=== PATIENT | female | born 1980 | race Two or more races ===

== ENCOUNTER 2024-08-28 21:27 | Emergency (ER) | payer MEDICAID, SELFPAY ==
[2024-08-28 21:28] VITALS: BMI 32.9
[2024-08-28 22:40] VITALS: BP 131/81; PULSE 74; RESP 18; TEMP 36.8; O2SAT 97
--- NOTE | 2024-08-29 00:37 | EDNOTE_ITS ---
ED General RME/HPI General Chief complaint: General Adult/Misc Complain Stated complaint: NEW MEDICATION/ MISC COMPLAINTS Time Seen by Provider: 08/29/24 00:20 Arrival date/time: 08/28/24 21:27 Limitations: no limitations RME / HPI RME / HPI narrative: 44-year-old female presents for evaluation of dysuria x 1 day. She reports that she was recently started on Jardiance for diabetes control and states that she i s concerned it is not the appropriate dose. She reports intermittent burning with urination over the last several days. She reports that she continues to take her glucose levels at home and has been in the 180s over the last several days. Patient denies hematuria, abdominal pain, nausea, vomiting, cramping, headache, fever. She notes increased vaginal discharge. Denies new sexual partners. Quality: burning Consistency: intermittent Relieving factors: none Related Data Previous Rx's ?Medication ?Instructions ?Recorded ciprofloxacin HCl 500 mg tablet 500 mg PO BID 7 days # 14 tabs 08/29/24 Allergies Allergy/AdvReac Type Severity Reaction Status Date / Time diphenhydramine Allergy Unknown Verified 04/17/17 16:09 morphine AdvReac Mild VOMITING Verified 04/17/17 16:09 Review of Systems Constitutional Constitutional: Denies chills, Denies fever(s), Denies headache(s) and Denies weakness ENT Ears, Nose, Mouth, and Throat: Denies headache(s) and Denies vertigo Cardiovascular Cardiovascular: Denies chest pain, Denies dyspnea and Denies irregular heart rhythm Respiratory Respiratory: Denies cough and Denies dyspnea Gastrointestinal Gastrointestinal: Denies change in stool character, Denies loose stools, Denies nausea and Denies vomiting Genitourinary Genitourinary: Reports dysuria, Denies hematuria, Reports vaginal discharge and Reports vaginal pruritus Musculoskeletal Musculoskeletal: Denies back pain Integumentary/Breasts Skin/Breast: Denies rash Neurologic Neurologic: Denies headache(s), Denies vertigo and Denies weakness Past Medical History Past Medical History CARDIAC: Negative Congestive Heart Failure RESPIRATORY: Negative Chronic Obstructive Pulmonary Disease (COPD) GENITOURINARY: Negative Renal Disease ENDOCRINE: Positive Diabetes Mellitus Type 2; Negative Diabetes Mellitus Type 1 Social History SMOKING STATUS: Never smoker ED Exam General Limitations: Present no limitations General appearance: Present alert and in no apparent distress Head Head exam: Present atraumatic and normocephalic Eye Eye exam: Present normal appearance and EOMI; Absent scleral icterus ENT ENT exam: Present normal exam and normal oropharynx Chest Chest inspection: Present normal inspection and symmetric chest wall rise Respiratory Respiratory exam: Present normal lung sounds bilaterally; Absent respiratory distress Cardiovascular Cardiovascular exam: Present regular rate and +S1 Abdominal Exam Abdominal exam: Present soft and normal bowel sounds; Absent distention or tenderness Extremities Exam Extremities exam: Present normal inspection Back Exam Back exam: Present normal inspection; Absent tenderness, CVA tenderness (R) or CVA tenderness (L) Neurological Exam Neurological exam: Present alert and normal gait Psychiatric Psychiatric exam: Present normal affect Skin Skin exam: Present warm, dry, intact and normal color Course Quality Measures none Orders Category Date Time Status UA, C/S IF [Urinalysis, C/S if Indicated] Stat Lab 08/29/24 00:44 Completed Urine Culture Stat Lab 08/29/24 00:44 Completed Ketorolac Inj [Toradol Inj] Med 08/29/24 02:08 Discontinued 30 mg IM X1 ONE cefTRIAXone [Rocephin] 500 mg Med 08/29/24 02:09 Discontinued Lidocaine 1% 20 ml [Xylocaine 1% 20 ML] 1 ml IM X1 Reevaluation(s) Reevaluation #1: Shared decision making with patient to forego imaging and labs at this time. Patient agreeable with plan for follow-up with primary care today. Patient will be given 1 dose of antibiotic for likely cystitis and pain medication. Time: 02:09 Vital Signs Vital signs: Vital Signs Temperature 98.3 F 08/28/24 22:40 Pulse Rate 74 08/28/24 22:40 Respiratory Rate 18 08/28/24 22:40 Blood Pressure 131/81 H 08/28/24 22:40 Pulse Oximetry (%) 97 08/28/24 22:40 Oxygen Delivery Method Room Air 08/28/24 22:40 Pulse ox 97% on room air, within normal limits. [facility] Patient data External records reviewed:: [facility] previous records Clinical information provided by:: patient Social determinants that could affect healthcare access:: none Patient has the following chronic illnesses:: Diabetes. How is presenting disease/condition affected by chronic disease/condition?: exacerbated by Evaluation data The following diagnostics were reviewed and interpreted by me:: lab results Lab and/or radiology exams considered but not ordered:: Considered not ordered. Interpretation Summary: Urine positive for ketones, glucose and blood. Positive for UTI Medications Medications considered but not ordered:: Rx given. Medication administrations:: Medication Administration History Discontinued Medications Ceftriaxone Sodium 500 mg/ (Lidocaine HCl 1 ml) 0 mg IM X1 ONE Stop: 08/29/24 02:10 Last Admin: 08/29/24 02:21 Dose: 500 mg Documented By: REBECA Ketorolac Tromethamine (Ketorolac Inj 60 Mg/2 Ml Vial) 30 mg IM X1 ONE Stop: 08/29/24 02:09 Last Admin: 08/29/24 02:28 Dose: 30 mg Documented By: SUPRIYAOR Rx given. Consultations Consultation(s) initiated? (list below): No Diagnosis Differential Diagnosis ED Complaint MDM: DKA, cystitis, urinary tract infection, pyelonephritis, poorly controlled b Most likely diagnosis given after review of the tests above:: Glycosuria, urine ketones, hematuria, poorly controlled diabetes. Admission Indicated Admission indicated?: not indicated Explain why admission is indicated or not indicated:: Patient stable with plan to follow-up with primary care doctor for further diabetes maintenance. Low concern for DKA. Patient stable at time of discharge. Admission Request Was there a request for admission?: No Disposition Plan Disposition Plan: Discharge Discharge Attestation Discharge Attestation: The patient and all family members were given an opportunity to ask questions and understood the discharge instructions. Discharge instructions specifically effects, indications for sooner follow up or return to the emergency department, and the expected course of current diagnosis. Patient condition: Stable Medical Decision Making MDM Narrative MDM Narrative: 44-year-old female with diabetes presents with dysuria and vaginal discharge. Vital signs stable. Unremarkable physical exam and using shared decision making with patient deferred labs and imaging at this time. Patient reports that her home blood sugars have been in the 180s over the last several days and given lack of abdominal pain, nausea, vomiting, weakness less concern for DKA at this time. UA significant for glycosuria, ketones, hematuria, and UTI. Patient was given Rocephin in the department and analgesics which she reported improved her symptoms. Ultimately patient was discharged home with plan to follow-up with primary care for further diabetes medication management. Patient was discharged on ciprofloxacin for UTI complicated by poorly controlled diabetes. I urged the patient to take ciprofloxacin with food and consider a probiotic while on medication to reduce her risk for C. difficile. Patient vocalized understanding of the plan and was given return precautions. Differential Diagnosis Differential Diagnosis: DKA, cystitis, urinary tract infection, pyelonephritis, poorly controlled b Lab Data Labs: Lab Results 08/29/24 Range/Units 00:44 Ur Collection Type Clean Catch Urine Color Yellow (Lt Yel-Yel) Urine Clarity Clear (Clear/Hazy) Urine pH 5.5 (5.0-7.0) Ur Specific [place] 1.037 H (1.001-1.035) Urine Protein Negative (Neg - Trace) Urine Glucose (UA) 4+ A (Negative) Urine Ketones 1+ A (Negative) Urine Blood 1+ A (Negative) Urine Nitrite Negative (Negative) Urine Bilirubin Negative (Negative) Urine Urobilinogen (Auto) Negative (0.0-1.0) mg/dL Ur Leukocyte Esterase Positive (Negative) Urine RBC 20 H (0-3) /hpf Urine WBC 32 H (0-5) /hpf Ur Squamous Epith Cells 2 (0-5) /hpf Urine Bacteria None (None) Ur Culture Indicated? Yes Discharge Plan Plan Patient Disposition: HOME (Self Care) Disposition Comment: stable Prescriptions/Referrals Prescriptions/Med Rec: New ciprofloxacin HCl 500 mg tablet 500 mg PO BID 7 Days Qty: 14 0RF Referrals: Avis Johnson MD [Primary Care Provider] - In 1 week Problem List Clinical Impression: Dysuria, Hematuria, Urine ketones, Glycosuria, Uncontrolled diabetes mellitus Patient/Caregiver Discharge Instructions Other Activity Instructions:: Take Cipro floxacillin twice a day for the next time 7 days for urinary tract infection. Follow-up with primary care within the next 24 hours for further diabetes management and plan. Return to the ED if your symptoms worsen or change. Education Materials: Glucose (Urine), Dysuria Print Language: Cuban Stand Alone Forms: Coleen Award Info., Patient Portal Info Letter PA/LAUREN Supervising Physician PA/LAUREN Supervising Physician: Dr. Griffin
[2024-08-29 00:48] LABS: Collection Type, Urine Clean Catch
[2024-08-29 00:56] LABS: Bilirubin,Urine Negative (Negative); Blood,Urine 1+ (Negative); Clarity,Urine Clear (Clear/Hazy); Color,Urine Yellow (Lt Yel-Yel); Glucose, Urine 4+ (Negative); Ketones,Urine 1+ (Negative); Leukocyte Esterase,Urine Positive (Negative); Nitrite,Urine Negative (Negative); PH,Urine 5.5 (5.0-7.0); Protein,Urine Negative (Neg - Trace); RBC,Urine 20 /hpf (0-3); Specific Gravity,Urine 1.037 (1.001-1.035); Squamous Epithelial Cell,Urine 2 /hpf (0-5); Urobilinogen,Urine Negative mg/dL (0.0-1.0); WBC,Urine 32 /hpf (0-5)
[2024-08-29 00:58] LABS: Culture Indicated,Urine Yes
[2024-08-29] MEDS: cefTRIAXone 500 MG, LIDOCAINE 1% 20 ML 1 ML IM (02:21)
[2024-08-29] MEDS: KETOROLAC INJ 60 MG/2 ML VIAL 30 MG IM (02:28)
== END 2024-08-29 02:36 | disposition home or self-care (01) ==
PROVIDERS: Physician Assistant; Emergency Provider Emergency Medicine; PCP Internal Medicine
DX: E11.65 Type 2 diabetes mellitus with hyperglycemia (principal); R30.0 Dysuria; R82.4 Acetonuria; R81 Glycosuria
CPT/HCPCS: 81001; 87086; 96372; 99283; J0696; J1885; J3490

== ENCOUNTER 2025-04-23 19:26 | Emergency (ER) | payer MEDICAID, SELFPAY ==
[2025-04-23 19:28] VITALS: BMI 34.0
[2025-04-23 19:58] VITALS: BP 119/79; PULSE 86; RESP 18; TEMP 36.8; O2SAT 97
--- NOTE | 2025-04-23 19:59 | XR_ITS ---
Examination: CT abdomen and pelvis without contrast. Coronal 3-D reconstructions. Sagittal 2-D reconstructions. Date and time of exam: April 23, 2025, 2137 hours INDICATIONS: Kidney infection beginning 3 weeks ago CTDI: vol (mGy): 12.2 DLP: (mGycm): 687 Technique: Axial images of the abdomen have been obtained, 3 mm slice thickness Intravenous contrast material has not been administered. Low dose protocols were performed. One or more of the following dose reduction techniques were used; automated exposure control, adjustment of the mA and/or KV according to patient size, use of iterative reconstruction technique. Findings: Small retrocardiac gastric hernia no focal liver or splenic lesion Absent gallbladder. No pancreatic mass Moderate renal parenchymal scar formation, no renal or ureteral calculi, no hydronephrosis Mild edema in the mesentery Normal appendix No bowel obstruction No pelvic mass No bladder mass or bladder calculi Mild disc narrowing L5-S1 IMPRESSION: Moderate renal parenchymal scar formation, no hydronephrosis renal or ureteral calculi Normal appendix No bowel obstruction Negative for cystitis
[2025-04-23 20:28] LABS: Collection Type, Urine Clean Catch
[2025-04-23 20:35] LABS: Basophils # (Auto) 0.0 Thou/mm3 (0.0-0.2); Basophils % (Auto) 1 % (0-2.5); Eosinophils # (Auto) 0.2 Thou/mm3 (0.0-0.5); Eosinophils % (Auto) 2 % (0-10); Hematocrit 39.6 % (36.0-46.0); Hemoglobin 13.1 g/dL (12.0-16.0); Immature Granulocytes Auto 0.02 Thou/mm3 (0.00-0.00); Lymphocytes # (Auto) 2.4 Thou/mm3 (1.0-4.8); Lymphocytes % (Auto) 29 % (10-50); Mean Corpuscular HGB Conc 33.1 g/dl (31.0-37.0); Mean Corpuscular Hemoglobin 25.7 pg (25.0-35.0); Mean Corpuscular Volume 78 fL (80-100); Monocytes # (Auto) 0.6 Thou/mm3 (0.0-0.8); Monocytes % (Auto) 7 % (0-12); Neutrophils # (Auto) 5.1 Thou/mm3 (1.8-7.7); Neutrophils % (Auto) 61 % (37-80); Nucleated Red Blood Cell # 0.00 Thou/mm3 (0.00-0.00); Nucleated Red Blood Cell % 0 /100 WBC (0); Platelet Count 264 Thou/mm3 (140-440); RDW Standard Deviation 38.3 fL (36.4-46.3); Red Blood Count 5.10 Miln/mm3 (4.00-5.20); White Blood Count 8.3 Thou/mm3 (3.6-11.0)
[2025-04-23 20:37] LABS: HCG Qualitative,Urine Negative
[2025-04-23 20:39] LABS: Bilirubin,Urine Negative (Negative); Blood,Urine Negative (Negative); Clarity,Urine Turbid (Clear/Hazy); Color,Urine Drk-Yellow (Lt Yel-Yel); Glucose, Urine 4+ (Negative); Ketones,Urine Negative (Negative); Leukocyte Esterase,Urine Positive (Negative); Nitrite,Urine Positive (Negative); PH,Urine 6.0 (5.0-7.0); Protein,Urine Negative (Neg - Trace); RBC,Urine 27 /hpf (0-3); Specific Gravity,Urine 1.037 (1.001-1.035); Squamous Epithelial Cell,Urine 13 /hpf (0-5); Urobilinogen,Urine Negative mg/dL (0.0-1.0); WBC,Urine 35 /hpf (0-5)
[2025-04-23 20:51] LABS: Alanine Aminotransferase 31 U/L (10-49); Albumin, Serum 4.2 gm/dL (3.5-5.0); Albumin/Globulin Ratio 1.4 (1.2-2.2); Alkaline Phosphatase 82 U/L (46-116); Anion Gap 11 (7-16); Aspartate Amino Transferase 21 U/L (0-34); BUN/Creatinine Ratio 11 Ratio (12-20); Bilirubin,Total 0.3 mg/dL (0.3-1.2); Blood Urea Nitrogen 9 mg/dL (9-23); Calcium 9.5 mg/dL (8.3-10.6); Calcium (Corrected) 9.5 mg/dL (8.5-10.1); Carbon Dioxide 24.2 mMol/L (20.0-31.0); Chloride 103 mMol/L (98-107); Creatinine (Component) 0.8 mg/dL (0.6-1.3); Estimated Creatinine Clearance 98.4 mL/min (>60); Globulin 2.9 gm/dL (2.3-3.5); Glucose 247 mg/dL (74-106); Lipase 26 U/L (12-53); Osmolality,Calculated 282 (275-295); Potassium 3.6 mMol/L (3.4-5.1); Sodium 138 mMol/L (136-145); Total Protein 7.1 gm/dL (5.7-8.2); eGFR > 60 See Note
[2025-04-23] MEDS: cefTRIAXone 1,000 MG, LIDOCAINE 1% 20 ML 2.1 ML IM (23:16)
--- NOTE | 2025-07-22 07:35 | PD.EDFMALE ---
ED Female Urogenital RME/HPI General Chief complaint: Urogenital-Female Stated complaint: RIGHT FLANK PAIN, KIDNEY INFECTION Time Seen by Provider: 04/23/25 19:42 Arrival date/time: 04/23/25 19:26 This is a case of 45-year-old female with no medical history came into the emergency room due to right flank pain on and off for 2 days associated with painful urination denies any vomiting diarrhea constipation abdominal fever or chills persistence of the symptoms this patient decided to sought consult here in the emergency room Limitations: no limitations Related Data Previous Rx's ?Medication ?Instructions ?Recorded cefuroxime axetil 500 mg tablet 500 mg PO BID #20 tabs 04/23/25 ibuprofen 800 mg tablet 800 mg PO Q8H PRN pain #20 tabs 04/23/25 ondansetron 4 mg disintegrating 4 mg PO Q8H #20 tabs 04/23/25 tablet phenazopyridine 200 mg tablet 200 mg PO TID 6 doses #6 tabs 04/23/25 (Pyridium) Allergies Allergy/AdvReac Type Severity Reaction Status Date / Time diphenhydramine Allergy Unknown Verified 04/23/25 19:28 morphine AdvReac Mild VOMITING Verified 04/23/25 19:28 Review of Systems Review of Systems Systems Reviewed: All systems reviewed, normal except as documented Past Medical History Past Medical History CARDIAC: Negative Congestive Heart Failure RESPIRATORY: Negative Chronic Obstructive Pulmonary Disease (COPD) GENITOURINARY: Negative Renal Disease ENDOCRINE: Positive Diabetes Mellitus Type 2; Negative Diabetes Mellitus Type 1 Social History SMOKING STATUS: Never smoker ED Exam General Limitations: Present no limitations General appearance: Present alert and in no apparent distress Head Head exam: Present atraumatic Eye Eye exam: Present normal appearance, PERRL and EOMI ENT ENT exam: Present normal exam, normal oropharynx and mucous membranes moist Neck Neck exam: Present normal inspection, full ROM and trachea midline Chest Chest inspection: Present normal inspection and symmetric chest wall rise Respiratory Respiratory exam: Present normal lung sounds bilaterally Cardiovascular Cardiovascular exam: Present regular rate, normal rhythm and normal heart sounds Abdominal Exam Abdominal exam: Present soft, normal bowel sounds and other (Mild tenderness on the right flank no CVA tenderness bladder is nontender or distended); Absent distention, tenderness, guarding, rebound, rigidity, diminished bowel sounds, hyperactive bowel sounds, hypoactive bowel sounds, organomegaly, obturator sign, Gold's sign, Rovsing's sign, tenderness at McBurney's Point or hernia Extremities Exam Extremities exam: Present normal inspection and full ROM Back Exam Back exam: Present normal inspection and full ROM Neurological Exam Neurological exam: Present alert, oriented X3, CN II-XII intact, normal gait and reflexes normal; Absent motor sensory deficit Psychiatric Psychiatric exam: Present normal affect and normal mood Skin Skin exam: Present warm, dry, intact, normal color and other (excellenty skin turgor) Course Quality Measures none Orders Category Date Time Status CT abdomen pelvis wo con Stat Exams 04/23/25 19:59 Completed CBC Stat Lab 04/23/25 20:05 Completed Comprehensive Metabolic Panel Stat Lab 04/23/25 20:05 Completed HCG Qualitative,Urine Stat Lab 04/23/25 20:20 Completed Lipase Stat Lab 04/23/25 20:05 Completed Urinalysis Stat Lab 04/23/25 20:20 Completed HYDROcodone*/APAP 5/325 [[place] 5/325] Med 04/23/25 22:50 Discontinued 1 tab PO X1 ONE Ketorolac Inj [Toradol Inj] Med 04/23/25 22:50 Discontinued 30 mg IM X1 ONE Ondansetron Odt [Zofran Odt] Med 04/23/25 22:50 Discontinued 4 mg PO X1 ONE cefTRIAXone [Rocephin] 1,000 mg Med 04/23/25 22:51 Discontinued Lidocaine 1% Vial 20 ml [Xylocaine 1% 20 ML] 2.1 ml IM X1 Vital Signs Vital signs: Vital Signs Temperature 98.2 F 04/23/25 19:58 Pulse Rate 86 04/23/25 19:58 Respiratory Rate 18 04/23/25 19:58 Blood Pressure 119/79 04/23/25 19:58 Pulse Oximetry (%) 97 04/23/25 19:58 Oxygen Delivery Method Room Air 04/23/25 19:58 vital sign stable Urogenital - Female MDM Narrative MDM Narrative:: Patient was discharged with comfortable condition walking with stable gait. Patient verbalized no further complains explained diagnosis and answered patient question. Patient is comfortable with the proposed management plan including the need to follow up with his/her primary care physician and any specialist if applicable Discussed patient for any urgent condition or worsening sx, He/She needed to go to emergency room immediately or call 911. Patient acknowledge the responsibility to follow up as instructed and to monitor her/his symptoms. For any persistence of the symptoms for more than 3-5 days return precaution advised. Discussed the result of the test and was given printed discharge instruction Patient data External records reviewed:: [facility] previous records Clinical information provided by:: patient Social determinants that could affect healthcare access:: none Patient has the following chronic illnesses:: none How is presenting disease/condition affected by chronic disease/condition?: no chronic disease Evaluation data The following diagnostics were reviewed and interpreted by me:: lab results and radiology exam(s) Lab and/or radiology exams considered but not ordered:: reviewed Interpretation Summary: reviewed Medications / Prescriptions Medications or Prescriptions considered but not ordered:: given Medication administrations:: Medication Administration History Discontinued Medications Hydrocodone Bitart/Acetaminophen (Hydrocodone/Apap 5/325 Tablet) 1 tab PO X1 ONE Stop: 04/23/25 22:51 Last Admin: 04/23/25 23:09 Dose: Not Given Documented By: BD Non-Admin Reason: Patient Refused Ceftriaxone Sodium 1,000 mg/ (Lidocaine HCl 2.1 ml) 0 mg IM X1 ONE Stop: 04/23/25 22:52 Last Admin: 04/23/25 23:16 Dose: 1,000 mg Documented By: BD Ketorolac Tromethamine (Ketorolac Inj 60 Mg/2 Ml Vial) 30 mg IM X1 ONE Stop: 04/23/25 22:51 Last Admin: 04/23/25 23:10 Dose: Not Given Documented By: BD Non-Admin Reason: Patient Refused Ondansetron HCl (Ondansetron Odt 4 Mg Tabrap) 4 mg PO X1 ONE; Protocol Stop: 04/23/25 22:51 Last Admin: 04/23/25 23:10 Dose: Not Given Documented By: BD Non-Admin Reason: Patient Refused given Consultations Consultation(s) initiated? (list below): No Diagnosis Urogenital Female Differential Diagnosis: urinary tract infection Most likely diagnosis given after review of the tests above:: UTI Admission Indicated Admission indicated?: not indicated Explain why admission is indicated or not indicated:: NOT INDNCIATED Admission Request Was there a request for admission?: No Admission Attestation Admission request attestation: NOT INDINCATED Disposition Plan Disposition Plan: Discharge Discharge Attestation Discharge Attestation: The patient and all family members were given an opportunity to ask questions and understood the discharge instructions. Discharge instructions specifically effects, indications for sooner follow up or return to the emergency department, and the expected course of current diagnosis. Patient condition: Stable Discharge Plan Plan Patient Disposition: HOME (Self Care) Patient condition on transfer: Stable Prescriptions/Referrals Prescriptions/Med Rec: New cefuroxime axetil 500 mg tablet 500 mg PO BID Qty: 20 0RF ibuprofen 800 mg tablet 800 mg PO Q8H PRN (Reason: pain) Qty: 20 0RF phenazopyridine [Pyridium] 200 mg tablet 200 mg PO TID 0 Days Qty: 6 0RF ondansetron 4 mg tablet,disintegrating 4 mg PO Q8H Qty: 20 0RF Referrals: Avis Johnson MD [Primary Care Provider] - In 1 week Problem List Clinical Impression: Acute flank pain, Urinary tract infection Patient/Caregiver Discharge Instructions Education Materials: When to Use Antibiotics, ED Pain, Acute, Uncertain Cause Additional Instructions: Follow-up with your primary care physician in 2 days for reevaluation worsening symptoms or any emergent concern call 911 or go to the nearest emergency room take your medication as directed finish the course of antibiotic increase water intake keep hydrated Pedialyte Gatorade for hydration is advised Print Language: Indonesian Stand Alone Forms: Coleen Award Info., Patient Portal Info Letter PA/LAUREN Supervising Physician KIMI/LAUREN Supervising Physician: Dr. Moy Lemos
== END 2025-04-23 23:37 | disposition home or self-care (01) ==
PROVIDERS: Nurse Practitioner Family; Emergency Provider Emergency Medicine; PCP Internal Medicine
DX: N39.0 Urinary tract infection, site not specified (principal)
CPT/HCPCS: 36415; 74176; 80053; 81001; 81025; 83690; 85025; 96372; 99283; J0696; J3490